=== PATIENT | male | born 1995 | race Caucasian/White ===

== ENCOUNTER 2025-02-10 03:42 | Inpatient (IN) | payer MEDICAID, SELFPAY ==
[2025-02-09 20:45] VITALS: BP 124/92
[2025-02-09 21:07] LABS: Hematocrit 43.2 % (39.0-52.0); Hemoglobin 15.9 g/dL (13.0-18.0); Mean Corp Hgb Conc. 36.8 g/dL (33.0-37.0); Mean Corpuscular Volume 97.1 fL (80.0-94.0); Nucleated Red Blood Cells % 0 % (-); Platelet Count 262 10^3/uL (130-400); Red Cell Dist. Width 11.3 % (11.5-14.5)
[2025-02-09 21:41] LABS: ALT (SGPT) 74 U/L (0-50); AST (SGOT) 34 U/L (17-59); Albumin 5.1 g/dl (3.5-5.0); Alkaline Phosphatase 139 U/L (38-126); Blood Urea Nitrogen 24 mg/dl (9-20); Calcium 10.3 mg/dl (8.4-10.2); Carbon Dioxide 29 mmol/L (22-30); Chloride 78 mmol/L (98-107); Glucose 880 mg/dl (70-99); Lipase 197 U/L (23-300); Potassium 5.8 mmol/L (3.5-5.1); Sodium 119 mmol/L (135-145); Total Protein 8.3 g/dl (6.3-8.2); eGFR > 60.00
[2025-02-09 22:11] VITALS: BP 116/88
[2025-02-09] MEDS: NSS 2000 IV (22:13)
[2025-02-09 22:24] LABS: Venous Blood Gas B.E. 4.3 mmol/L (-4 to +4); Venous Blood Gas O2 Sat % 68.4 %
[2025-02-09] MEDS: OMNIPAQUE 50 ML PO (22:25)
[2025-02-09] MEDS: MORPHINE SULFATE 4 MG IV (22:27)
[2025-02-09] MEDS: ZOFRAN 4 MG IV (22:27)
--- NOTE | 2025-02-09 22:29 | ED.GENMED ---
History of Present Illness
General
Chief Complaint: Abdominal Pain
Source: patient and family
Exam Limitations: none
Time Seen by Provider: 02/09/25 21:16
Nursing documentation reviewed up to this point in time: agreed with
History of Present Illness
History of Present Illness:
Note:
CHIEF COMPLAINT(S)
Abdominal pain and difficulty breathing.
HISTORY OF PRESENT ILLNESS
The patient is a 29-year-old male with a history of alcohol use and diabetes mellitus currently on insulin therapy. The patient presents with constant abdominal pain, which he has experienced since having pancreas-related issues. He mentions that
the abdominal area feels swollen and is tender to touch, particularly when there is pressure applied, making it difficult for him to breathe. The patient compares this episodes severity to a previous visit to the hospital. He denies hemoptysis. The
patient reports a significant reduction in alcohol consumption, having not consumed alcohol for almost three days. He expressed concern about potential alcohol withdrawal symptoms. The patient was started on insulin therapy last year. He mentions
that he uses Lantus insulin, primarily at night, basing its use on his blood sugar levels being elevated.
SOCIAL HISTORY
The patient admits to smoking tobacco and consuming alcohol, although he indicates he has significantly reduced his alcohol intake. He denies using any substances other than marijuana. He currently lives with his sister.
CHRONIC MEDICAL CONDITIONS SIGNIFICANTLY AFFECTING CARE
Diabetes mellitus, for which he is on insulin therapy.
PLAN
1. Order a computed tomography (CT) scan of the chest and abdomen/pelvis to evaluate abdominal pain and difficulty breathing.
2. Perform blood tests to assess electrolytes and other relevant parameters.
3. Monitor for potential alcohol withdrawal symptoms given the recent cessation of alcohol intake.
DIFFERENTIAL DIAGNOSIS
The Differential Diagnosis includes, in no particular order and is not limited to:
1. Pancreatitis
2. Peptic ulcer disease
3. Hepatic disease
4. Cholecystitis
5. Gastritis
6. Gastroesophageal reflux disease
7. Pneumonia
8. Pulmonary embolism
9. Alcohol withdrawal
10. Gastroenteritis
CARE-UPDATE
02/10/25 - 02:19
Hyperkalemia and hyperbilirubinemia improved; bilirubin levels decreased from 880 to 340. Discontinue insulin drip. Transfer to hospitalists for further management.
EKG
My independent EKG interpretation is:
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
- Rhythm: Normal
- Heart rate: 111 bpm
- DC interval: Normal
- QRS duration: Normal
- QT interval: Normal
- Whiting: Normal
- Abnormalities: No ST elevation, no ischemia
Disposition:
SUMMARY OF ENCOUNTER
The patient, a 29-year-old male with a history of diabetes mellitus on insulin therapy, was seen in the emergency department presenting with intractable abdominal pain and difficulty breathing. The patients condition was complicated by hyperglycemia
and poorly controlled diabetes. Lab results indicated elevated glucose levels, which have since decreased to 331. The patient reported a significant reduction in alcohol consumption, raising concerns about potential withdrawal symptoms. The
abdominal pains severity was compared to a previous hospital visit, potentially linked to pancreas-related issues.
DISPOSITION
Admit to the hospitalists for further management.
ASSESSMENT
The patient presents with hyperglycemia and abdominal pain, possibly due to pancreatitis, exacerbated by diabetes and recent alcohol intake changes.
PLAN
1. Admit the patient for further observation and management of hyperglycemia and abdominal pain.
2. Continue monitoring blood glucose levels and adjust insulin therapy as needed.
3. Assess for alcohol withdrawal symptoms and manage accordingly.
INDEPENDENT REVIEW OF LABS AND INTERPRETATION OF TESTS
My independent review of serum glucose levels indicates hyperglycemia, with glucose now reduced to 331 following the cessation of an insulin drip.
MEDICATION RECONCILIATION
Insulin (Lantus) therapy, currently adjusted due to recent hyperglycemia.
MEDICAL DECISION MAKING
-Complexity of Data Reviewed:
Chronic conditions affecting care include diabetes mellitus, alcohol use disorder, and possible pancreatitis.
Differential Diagnosis includes pancreatitis, peptic ulcer disease, hepatic disease, cholecystitis, gastritis, gastroesophageal reflux disease, pneumonia, pulmonary embolism, alcohol withdrawal, and gastroenteritis.
-Data:
Category 1
Tests considered include those necessary for evaluating abdominal pain and hyperglycemia management, such as blood glucose levels, and CT imaging was previously ordered.
Category 2
My independent interpretation of EKG shows a normal rhythm with a heart rate of 111 bpm.
Category 3
Management discussed with hospitalist team for continuation of care in a hospital setting.
-Risk:
Consideration of Admission/Observation: Escalation of care including admission/observation was considered given the complexity and risk of the patients presenting complaint, exam findings, and/or their underlying comorbidities. However, ultimately I
feel the patient is safe for outpatient management with close follow up. Reasoning: Work-up reassuring, does not reveal any acute life/organ threatening processes, patients symptoms well controlled upon reevaluation, reexamination is reassuring,
vitals are stable, patient agreeable with discharge, reliable for follow-up.
DIAGNOSIS
1. Hyperglycemia, unspecified (ICD-10: R73.9)
2. Abdominal pain, unspecified (ICD-10: R10.9)
3. Diabetes mellitus, type 1 (ICD-10: E10.9)
4. Possible Alcohol withdrawal (ICD-10: F10.239)
Past History
Past History
ED Past Medical History: None
ED Past Surgical History: None
Social History
Tobacco: Non-smoker
Alcohol: Occasional
Drug: None
Personal: Single
Living: with family
Phy Exam
Physical Exam
Physical Exam:
.
Course
Orders/Labs/Results
Orders:
Orders
02/09/25 20:49
Electrocardiogram (*1) Urgent
Reason for Study: Chest Pain
EKG- Treatment ONCE
IV Insert/Care/Rem.- Treatment PRN
02/09/25 20:59
B-Hydroxybutyrate Urgent
Comment: ADD ON
Complete Blood Count/With Diff Urgent
Comprehensive Metabolic Panel Urgent
Lipase Urgent
02/09/25 21:34
IV Insert/Care/Rem.- Treatment PRN
Iohexol [Omnipaque] See Protocol PO NOW STA
02/09/25 21:51
0.9% Sodium Chloride 1000 ml [Nss] 2,000 ml IV BOLUS
02/09/25 21:54
Add On- LAB Urgent
Tests Added?: b hydroxybutyrate
02/09/25 22:11
D-Dimer Urgent
Venous Blood Gas Urgent
%Oxygen/Room Air: 97
02/09/25 22:18
Morphine Sulfate 4 mg IV NOW STA
Ondansetron Injectable [Zofran] 4 mg IV NOW STA
02/09/25 22:26
Insulin Human Regular [Novolin R] 9 units IV NOW STA
02/09/25 22:27
Bedside Glucose- Treatment Q1H
02/09/25 22:52
Reg Insulin 100 Units/100 ml [Novolin R Insulin Infusion] 100 units in 100 ml IV NOW
02/09/25 23:02
Basic Metabolic Panel Q2H
02/10/25 00:30
CT Pe/abd/pel W Urgent
Reason For Exam: epigastric pain, history necr pancreatitis; hemoptysis
02/10/25 01:07
Basic Metabolic Panel Q2H
02/10/25 01:41
Morphine Sulfate 4 mg IV NOW STA
02/10/25 01:55
Ondansetron Injectable [Zofran] 4 mg IV NOW STA
02/10/25 02:00
KCl 20 Meq/0.9%Sodchl 1000 ml [NSS with KCL 20 MEQ] 20 meq in 1,000 ml IV 250 mls/hr
02/10/25 03:00
Basic Metabolic Panel Q2H
KCl 20 Meq/0.9%Sodchl 1000 ml [NSS with KCL 20 MEQ] 20 meq in 1,000 ml IV 250 mls/hr
Abnormal Lab Results
1002/09/25 02/09/25
20:59 22:11 22:59
RBC 4.45 L 10^6/uL
(4.70-6.10)
MCV 97.1 H fL
(80.0-94.0)
MCH 35.7 H pg
(27.0-31.0)
RDW 11.3 L %
(11.5-14.5)
Absolute Monos (auto) 1.2 H 10^3/uL
(0.1-0.6)
Monocytes % 11.8 H %
(1.7-9.3)
VBG pCO2 54 H mmHg
(35-48)
VBG HCO3 31.2 H mmol/L
(22-27)
Sodium 119 L* mmol/L
(135-145)
Potassium 5.8 H mmol/L
(3.5-5.1)
Chloride 78 L mmol/L
(98-107)
BUN 24 H mg/dl
(9-20)
Creatinine
Glucose 880 H* mg/dl
(70-99)
Calcium 10.3 H mg/dl
(8.4-10.2)
ALT 74 H U/L
(0-50)
Alkaline Phosphatase 139 H U/L
(38-126)
Total Protein 8.3 H g/dl
(6.3-8.2)
Albumin 5.1 H g/dl
(3.5-5.0)
B-Hydroxybutyrate 2.07 H mmol/L
(0.02-0.27)
POC Glucose > 600 H* mg/dl
(70-99)
02/09/25 02/10/25 02/10/25
23:02 01:07 01:11
RBC
MCV
MCH
RDW
Absolute Monos (auto)
Monocytes %
VBG pCO2
VBG HCO3
Sodium 122 L mmol/L 130 L D mmol/L
(135-145) (135-145)
Potassium 5.4 H mmol/L
(3.5-5.1)
Chloride 89 L mmol/L 93 L mmol/L
(98-107) (98-107)
BUN 22 H mg/dl
(9-20)
Creatinine 0.6 L mg/dL 0.5 L mg/dL
(0.7-1.3) (0.7-1.3)
Glucose 781 H* mg/dl 441 H mg/dl
(70-99) (70-99)
Calcium
ALT
Alkaline Phosphatase
Total Protein
Albumin
B-Hydroxybutyrate
POC Glucose 454 H* mg/dl
(70-99)
02/10/25
02:07
RBC
MCV
MCH
RDW
Absolute Monos (auto)
Monocytes %
VBG pCO2
VBG HCO3
Sodium
Potassium
Chloride
BUN
Creatinine
Glucose
Calcium
ALT
Alkaline Phosphatase
Total Protein
Albumin
B-Hydroxybutyrate
POC Glucose 331 H mg/dl
(70-99)
02/09/25 20:59
Vital Signs
Initial and Last Documented VS:
Initial Vital Signs
Temp Pulse Resp BP Pulse Ox
97.6 F 123 16 124/92 97
02/09/25 20:45 02/09/25 20:45 02/09/25 20:45 02/09/25 20:45 02/09/25 20:45
Last Documented Vital Signs
Temp Pulse Resp BP Pulse Ox
99.2 F 100 14 96/80 94
02/10/25 02:09 02/10/25 02:15 02/10/25 02:15 02/10/25 02:00 02/10/25 02:15
*Pulse Oximetry
SaO2: 97
Oxygen Mode of Delivery: Room air
Patient hypoxic: no
*Critical Care Note
Total Time (30-74mins, 75-104mins- exclusive of procedures): Not Applicable
ED Attending Note
-
Portions of this chart may have been created with voice recognition software.� Occasional wrong word or��sound alike� substitutions may have occurred due to the inherent limitations of voice recognition software.
Discharge Plan
Departure
Patient Disposition: Admit
Date of Disposition: 02/10/25
Time of Disposition: 02:27
Presentation/result/management discussed w/ accepting MD/DO: Hospitalist
Patient with high blood pressure during this ER visit?: No
Condition: Fair
Discharge Problem:
Diabetes mellitus with hyperglycemia, Acute hyperkalemia, Abdominal pain, Chronic pancreatitis
Prescriptions:
No Action
No Current Medications
0
Referrals:
UNKNOWN - PT DOES,NOT KNOW [Family Provider]
Interventions
Interventions:
*Risk Screen - Suicide Last Done: 02/09/25 20:45
*General Assessment Last Done: 02/09/25 20:45
*Neglect/Abuse Screening Last Done: 02/09/25 20:45
*ED- Fall Risk Assessment Last Done: 02/09/25 20:45
*ED COVID-19 Vaccine History Last Done: 02/09/25 20:45
*ED Influenza Vaccine History Last Done: 02/09/25 20:45
EU-Moxvhd-Jmyqbqszml Assessment Last Done: 02/09/25 23:50
Discharge Date and Time
Print Language: ALBANIAN
[2025-02-09 22:33] VITALS: BMI 20.7
[2025-02-09 22:41] LABS: D-Dimer < 0.27 ug/mlFEU (0.00-0.50)
[2025-02-09 23:00] VITALS: BP 120/95
[2025-02-09 23:00] LABS: Glucose - Point of Care > 600 mg/dl (70-99)
[2025-02-09 23:37] LABS: Blood Urea Nitrogen 22 mg/dl (9-20); Calcium 8.5 mg/dl (8.4-10.2); Carbon Dioxide 28 mmol/L (22-30); Chloride 89 mmol/L (98-107); Estimated Creatinine Clearance > 125 ml/min; Glucose 781 mg/dl (70-99); Potassium 5.4 mmol/L (3.5-5.1); Sodium 122 mmol/L (135-145); eGFR > 60.00
[2025-02-09] MEDS: NOVOLIN R 9 UNITS IV (23:53)
[2025-02-10] VITALS (15 sets, daily range): BP systolic 95–112; BP diastolic 66–86; BMI 20.2
[2025-02-10] MEDS: NOVOLIN R INSULIN INFUSION 100 IV
--- NOTE | 2025-02-10 00:29 | EDRN ---
IV pump beeping because pt moves R arm stopping infusion. Switched insulin infusion to R forearm #20g.
[2025-02-10 01:13] LABS: Glucose - Point of Care 454 mg/dl (70-99)
[2025-02-10 01:42] LABS: Blood Urea Nitrogen 20 mg/dl (9-20); Calcium 9.3 mg/dl (8.4-10.2); Carbon Dioxide 26 mmol/L (22-30); Chloride 93 mmol/L (98-107); Estimated Creatinine Clearance > 125 ml/min; Glucose 441 mg/dl (70-99); Potassium 4.0 mmol/L (3.5-5.1); Sodium 130 mmol/L (135-145); eGFR > 60.00
[2025-02-10] MEDS: MORPHINE SULFATE 4 MG IV (01:47)
[2025-02-10] MEDS: ZOFRAN 4 MG IV (01:58)
[2025-02-10 02:08] LABS: Glucose - Point of Care 331 mg/dl (70-99)
--- NOTE | 2025-02-10 02:08 | EDRN ---
Called pharmacy for NSS with 20meq KCL
--- NOTE | 2025-02-10 02:12 | EDRN ---
Dr De Los Santos informed repeat accu check = 331. Verbal order from Dr De Los Santos to stop insulin infusion.
--- NOTE | 2025-02-10 02:17 | EDRN ---
Dr De Los Santos said to run the NSS with 20meq KCl as ordered until result of 0300 bmp
[2025-02-10] MEDS: NSS with KCL 20 MEQ 1000 IV (02:40)
--- NOTE | 2025-02-10 03:19 | HPS.HSE ---
Family Physician
-
Family Physician: NOT KNOW UNKNOWN - PT DOES
Chief Complaint
-
Cough, Fatigue, Weight Loss
History of Present Illness
Patient is a 29y M with PMH significant for chronic pancreatitis and diabetes who presents to ED complaining of cough with scant hemoptysis, abdominal pain / chest pain and SOB. Patient states that he has had cough for about one week. Today had
small streaks of blood noted in sputum. No fevers / chills. He complains of pain in the upper abdomen and lower chest with sensation of SOB. He states that he has had similar pain / dyspnea in the past with flares of his pancreatitis. Patient
denies any known sick contacts, recent travel, etc.
Patient also notes marked weight loss over the past 1 year. He previously weighed 200 lbs and currently weighs about 120.
Patient states that he is constantly eating and drinking, but cannot gain any weight. He feels fatigued / tired all of the time. He feels weak and has SOB with exertion / activity.
Patient was diagnosed with diabetes after having recurrent pancreatitis episodes for about one year. He was prescribed Lantus which he states he only takes if his PM sugar is > 180.
He admits that he has not been checking his sugars at all / taking his insulin for at least the past 2 weeks.
Medical History
Past Medical History
Past Medical History: Reports Other
Additional Past Medical History:
Chronic Pancreatitis
Diabetes Mellitus
Past Surgical History: Reports Other
Additional Past Surgical History:
Eye Surgery
Social History
Tobacco: Smoker (Current every day smoker.)
Alcohol: Occasional (Previous daily / excessive EtOH intake. Now drinks occasionally.)
Drug: None
Family History
Family History: Not pertinent
Allergies / Home Medications
Allergies reflects when Allergies were last updated in [employer].
Home Medications with original date entered in [employer]
Allergy/Medication List:
Allergies
Allergy/AdvReac Type Severity Reaction Status Date / Time
No Known Allergies Allergy Verified 02/09/25 20:48
Home Medications
insulin glargine 100 unit/mL (3 mL) subcutaneous pen (Lantus Solostar U-100 Insulin) 17 unit SC QPM PRN Glucose > 180 02/10/25
Review of Systems
-
History Source: Patient
A 12 point ROS was completed and negative except as noted: Yes
Constitutional: Reports Weight Loss and Fatigue; Denies Fever or Chills
EENT: Denies Sore Throat
Respiratory: Reports Cough, Hemoptysis and Trouble Breathing
Cardiac: Reports Chest Pain; Denies Diaphoresis, Palpitations or Syncope
Abdomen/GI: Reports Abdominal Pain and Nausea; Denies Vomiting, Diarrhea, Constipated, Bloody Stools, Black Stools or Anorexia
: Denies Dysuria, Frequency or Flank Pain
Musculoskeletal: Denies Joint Pain or Edema
Neurological: Reports Weakness; Denies Headache
Psych: Denies Depression or Anxiety
Physical Exam
Vital Signs
Vital Signs
Temp Pulse Resp BP Pulse Ox
99.2 F 100 14 96/80 94
02/10/25 02:09 02/10/25 02:15 02/10/25 02:15 02/10/25 02:00 02/10/25 02:15
Physical Exam
General: Other (Thin, cachectic 29y M in no acute distress.)
HEENT: Other (Dry MM. Neck supple.)
Respiratory: Clear; No Wheezes, Rales or Rhonchi
Cardiac: S1/S2 and Regular Rhythm; No Murmur
GI: Soft, Non Distended, Normal Bowel Sounds and Other (Mild epigastric tenderness with voluntary guarding. Pos BS.)
Musculoskeletal: No Clubbing, No Cyanosis and No Edema
Neuro: AO x 3
Laboratory Results
-
02/09/25 20:59
Laboratory Results
Total Bilirubin 0.8 mg/dl (0.2-1.3) 02/09/25 20:59
AST 34 U/L (17-59) 02/09/25 20:59
ALT 74 U/L (0-50) H 02/09/25 20:59
Alkaline Phosphatase 139 U/L (38-126) H 02/09/25 20:59
Lipase 197 U/L (23-300) 02/09/25 20:59
Impression/Plan
-
A/P: Patient is a 29y M with PMH significant for alcoholic pancreatitis / chronic pancreatitis and DM who presents to ED complaining of chest pain, cough, hemoptysis, weight loss, etc.
Severe Uncontrolled DM
Weight Loss / Cachexia secondary to the above
Pseudohyponatremia secondary to the above
- Admit for further evaluation and treatment.
- Was on insulin gtt briefly in the ED.
- No elevation in anion gap, no acidemia on blood gas.
- Lantus dose now and then daily - adjust dose as needed for improved glycemic control.
- Suspect that weight loss, fatigue, etc are sequelae of long-standing poor DM control.
- Patient will benefit from regular basal:bolus regimen.
- DM education.
- IVF support.
- Follow for clinical improvement.
Acute on Chronic Pancreatitis
- Initially secondary to alcohol use disorder - multiple hospitalizations but none in about one year according to patient.
- Diet as tolerated and follow for new / worsening symptoms.
- Aggressive IVF replacement.
- Pain control, antiemetics, etc.
- Follow for clinical improvement.
Cough / Bronchitis
- Likely viral bronchitis. Check COVID status.
- CT without evidence of PE, pneumonia, etc.
- Supportive care.
- Follow for any new/ worsening symptoms.
DVT Prophylaxis: Lovenox
Code Status: Full
[2025-02-10 03:45] LABS: Blood Urea Nitrogen 19 mg/dl (9-20); Calcium 9.6 mg/dl (8.4-10.2); Carbon Dioxide 27 mmol/L (22-30); Chloride 96 mmol/L (98-107); Estimated Creatinine Clearance > 125 ml/min; Glucose 262 mg/dl (70-99); Potassium 4.4 mmol/L (3.5-5.1); Sodium 132 mmol/L (135-145); eGFR > 60.00
[2025-02-10] MEDS: LANTUS 0.12 UNITS SC (03:59)
[2025-02-10 04:04] LABS: Glucose - Point of Care 285 mg/dl (70-99)
[2025-02-10 04:31] LABS: COVID-19 Antigen Negative (Negative)
[2025-02-10] MEDS: DILAUDID 0.5 MG IV ×5 (06:06→23:34)
[2025-02-10 06:15] LABS: Glucose - Point of Care 322 mg/dl (70-99)
[2025-02-10] MEDS: LR 1000 IV ×3 (07:36→17:39)
[2025-02-10 07:54] LABS: Hematocrit 36.0 % (39.0-52.0); Hemoglobin 12.9 g/dL (13.0-18.0); Mean Corp Hgb Conc. 35.8 g/dL (33.0-37.0); Mean Corpuscular Volume 95.7 fL (80.0-94.0); Platelet Count 212 10^3/uL (130-400); Red Cell Dist. Width 11.8 % (11.5-14.5)
[2025-02-10 08:28] LABS: Potassium 4.3 mmol/L (3.5-5.1)
[2025-02-10 08:29] LABS: ALT (SGPT) 52 U/L (0-50); AST (SGOT) 30 U/L (17-59); Albumin 3.9 g/dl (3.5-5.0); Alkaline Phosphatase 88 U/L (38-126); Blood Urea Nitrogen 18 mg/dl (9-20); Calcium 8.8 mg/dl (8.4-10.2); Carbon Dioxide 27 mmol/L (22-30); Chloride 96 mmol/L (98-107); Estimated Creatinine Clearance > 125 ml/min; Glucose 301 mg/dl (70-99); Magnesium 1.4 mg/dl (1.6-2.3); Sodium 133 mmol/L (135-145); Total Protein 6.5 g/dl (6.3-8.2); eGFR > 60.00
[2025-02-10 08:30] LABS: Glucose - Point of Care 327 mg/dl (70-99)
[2025-02-10] MEDS: PROTONIX IV 40 MG IV (08:47)
[2025-02-10] MEDS: NOVOLOG FLEXPEN-MODERATE RESISTANCE 7 UNITS SC (08:47)
--- NOTE | 2025-02-10 10:16 | W.PN.HOSP.TC ---
Today's Communication/Plan
-
see plan
Assessment / Plan
Assessment / Plan
29y M with PMH significant for alcoholic pancreatitis/chronic pancreatitis and DM who presents to ED complaining of chest pain, cough, hemoptysis, weight loss.
Gen: NAD, AAOx3.
Eyes: EOMI, PERRLA, no scleral icterus.
Neck: supple.
CV: RRR, +S1/S2, no m/r/g.
Resp: CTAB, no rales, wheezes, or rhonchi.
Abd: +BS, soft, epigastric TTP with guaring, ND
Skin: No rashes.
Neuro: CN 2-12 intact, non-focal.
Psych: Normal mood and affect.
CT A/P: No evidence of central pulmonary embolism. Scattered small pancreatic calcifications compatible with chronic pancreatitis. Moderate to large volume colonic stool, especially proximally. Findings could represent constipation.
Severe Uncontrolled DM1
-Weight Loss / Cachexia secondary to the above
-was on insulin gtt briefly in the ED
-No elevation in anion gap, no acidemia on blood gas.
-increase Lantus to 15U HS, start 5U premeal Novolog
-Suspect that weight loss, fatigue, etc are sequelae of long-standing poor DM control
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
-a1c pending
-cont IVFs
Chronic Pancreatitis:
-acute component of pancreatitis has been ruled out
-Chronic pancreatitis due to alcohol abuse disorder
-patient admits to continued alcohol use although less than prior
-Lipase normal
-diet as tolerated
-cont IVFs
-Pain control, antiemetics
Cough/Bronchitis:
-COVID NEG
-likely viral bronchitis
-CT chest above
-supportive care
Hypomagnesemia:
-2g IV Mg
FULL/Lovenox
Anticipated Discharge: Within 24 hours
Subjective/Interval History
-
Date of Service: February 10, 2025
Objective Data
-
Labs:
Laboratory Results
02/09/25 02/09/25 02/10/25
23:02 23:02 00:30
WBC
Hgb
Hct
Plt Count
Sodium 122 L Cancelled
Potassium 5.4 H Cancelled
Chloride 89 L Cancelled
Carbon Dioxide 28 Cancelled
BUN 22 H Cancelled
Creatinine 0.6 L Cancelled
Glucose 781 H* Cancelled Cancelled
Calcium 8.5 D Cancelled
Total Bilirubin
AST
ALT
Alkaline Phosphatase
02/10/25 02/10/25 02/10/25
01:07 02:30 03:00
WBC
Hgb
Hct
Plt Count
Sodium 130 L D Cancelled 132 L
Potassium 4.0 D Cancelled 4.4
Chloride 93 L Cancelled 96 L
Carbon Dioxide 26 Cancelled 27
BUN 20 Cancelled 19
Creatinine 0.5 L Cancelled 0.5 L
Glucose 441 H Cancelled 262 H
Calcium 9.3 Cancelled 9.6
Total Bilirubin
AST
ALT
Alkaline Phosphatase
02/10/25
07:24
WBC 8.6
Hgb 12.9 L
Hct 36.0 L
Plt Count 212
Sodium 133 L
Potassium 4.3
Chloride 96 L
Carbon Dioxide 27
BUN 18
Creatinine 0.6 L
Glucose 301 H
Calcium 8.8
Total Bilirubin 0.3
AST 30
ALT 52 H
Alkaline Phosphatase 88
Vital Signs:
Vital Signs
Temp Pulse Resp BP Pulse Ox
97.6 F 84 17 98/66 96
02/10/25 07:30 02/10/25 07:30 02/10/25 07:30 02/10/25 07:30 02/10/25 07:30
[2025-02-10] MEDS: MAGNESIUM SULFATE 50 IV (10:31)
[2025-02-10 11:37] LABS: Glucose - Point of Care 417 mg/dl (70-99)
[2025-02-10 12:09] LABS: Glycohemoglobin (HgbA1c) 12.9 % (4.0-5.6)
[2025-02-10] MEDS: NOVOLOG FLEXPEN-MODERATE RESISTANCE 11 UNITS SC (12:16)
[2025-02-10] MEDS: NOVOLOG FLEXPEN 5 UNITS SC ×2 (12:17→16:49)
[2025-02-10 12:20] LABS: Glucose 349 mg/dl (70-99)
--- NOTE | 2025-02-10 15:16 | CM ---
CM reviewed chart, patient seen bedside, initial assessment completed.
Patient reports he is currently staying with his sister in a multiple story town home.
Patient is independent with ADLs/IADLs.
Patient currently uninsured-CM inquired how long patient has been uninsured, per patient, only a few months, had state insurance and is unsure how he lost insurance.
Patient does not have a PCP, Pharmacy [facility].
Patient reports recently diagnosed with diabetes about one year ago, was not managing properly- consult placed for [employer].
CM discussed [facility] most affordable option for diabetic supplies.
CM will continue to follow.
Plan; home with family
[2025-02-10 16:34] LABS: Glucose - Point of Care 290 mg/dl (70-99)
[2025-02-10] MEDS: NOVOLOG FLEXPEN-MODERATE RESISTANCE 5 UNITS SC (16:48)
[2025-02-10] MEDS: LOVENOX 40 MG SC (17:41)
[2025-02-10 21:24] LABS: Glucose - Point of Care 382 mg/dl (70-99)
[2025-02-10] MEDS: LANTUS 0.15 UNITS SC (21:28)
[2025-02-11] MEDS: LR 1000 IV ×4 (02:08→19:58)
[2025-02-11 03:00] VITALS: BP 113/86
[2025-02-11 03:46] VITALS: BMI 20.6
[2025-02-11] MEDS: DILAUDID 0.5 MG IV ×5 (03:47→21:19)
[2025-02-11 07:06] LABS: Glucose - Point of Care 349 mg/dl (70-99)
[2025-02-11 07:38] VITALS: BP 107/73
--- NOTE | 2025-02-11 07:41 | PN.DE.MGMTRT ---
Insulin Management
- -
02/11/2025: Diabetes Management Consult
29 year old male with PMH: Alcoholic Pancreatitis/Chronic pancreatitis and diabetes who presents to ED complaining chest pain, cough, hemoptysis, weight loss, etc. States he has had similar pain / dyspnea in the past with flares of his
pancreatitis. Patient also notes marked weight loss over the past 1 year. He previously weighed 200 lbs and currently weighs about 120. Patient states that he is constantly eating and drinking, but cannot gain any weight. He feels fatigued / tired
all of the time. He feels weak and has SOB on exertion and with minor activity.
Pt awake, alert, oriented, sitting up in bed, offers no complaints, able to discuss diabetes care plan
States he was diagnosed with diabetes last year after having recurrent episodes of pancreatitis for about one year.
States he was Rx Lantus by his PCP in [place] and was instructed to only take it if his PM sugar is > 200, he has not gone to see his PCP in over 6 months.
He admits that he has not been checking his sugars at all and has not been taking his insulin for at least the past 2 weeks.
Glucose on admission was 880, he was initiated on insulin gtt briefly in the ED, then was started on basal bolus regimen. A1C is 12.9% consistent with severe Uncontrolled Diabetes, Cr 0.6, eGFR >60.
He is noted for persistent hyperglycemia> 250. Premeal glucose yesterday was 290 to 417, required 5-11 units of corrective insulin, HS was 382, received Lantus 15 units, fasting glucose is 349 today. Will increase NovoLog to 10 units AC and increase
Lantus to 20 units @ HS.
Suspect that weight loss, fatigue, lack of energy are sequelae of long-standing poor DM control.
Had a lengthy d/w pt regarding his current A1C and lack of interest in diabetes self care management.
Discussed implications of poorly controlled diabetes as it relates to acute and edge banding off bearer diabetes related complications, to which he responded stating that he forgets most of the time to check his blood sugar.
Will consult diabetes nurse educator and Dietitian
Diabetes History
- -
Type of Diabetes: 2 requiring insulin
Pre-Admission Diabetes Regimen
02/10/25
07:24
Creatinine 0.6 L
Lab Results
Hemoglobin A1c 12.9 % (4.0-5.6) H 02/10/25 07:24
Insulin Pump Settings
IP Diabetes Regimen
02/10/25 02/10/25 02/10/25
07:24 08:28 11:34
Glucose 301 H
POC Glucose 327 H 417 H
02/10/25 02/10/25 02/10/25
11:45 16:32 21:23
Glucose 349 H
POC Glucose 290 H 382 H
02/11/25
07:05
Glucose
POC Glucose 349 H
Patient Education
[2025-02-11] MEDS: NSS (PRESERVATIVE FREE) 10 ML IV (07:57)
[2025-02-11] MEDS: PROTONIX IV 40 MG IV (07:57)
[2025-02-11] MEDS: NOVOLOG FLEXPEN 5 UNITS SC (07:57)
[2025-02-11] MEDS: NOVOLOG FLEXPEN-MODERATE RESISTANCE 7 UNITS SC ×2 (07:58→11:34)
[2025-02-11 08:18] LABS: Hematocrit 35.1 % (39.0-52.0); Hemoglobin 12.4 g/dL (13.0-18.0); Mean Corp Hgb Conc. 35.3 g/dL (33.0-37.0); Mean Corpuscular Volume 100.6 fL (80.0-94.0); Platelet Count 184 10^3/uL (130-400); Red Cell Dist. Width 11.6 % (11.5-14.5)
[2025-02-11 08:56] LABS: Blood Urea Nitrogen 10 mg/dl (9-20); Calcium 8.8 mg/dl (8.4-10.2); Carbon Dioxide 29 mmol/L (22-30); Chloride 99 mmol/L (98-107); Estimated Creatinine Clearance > 125 ml/min; Glucose 313 mg/dl (70-99); Magnesium 1.5 mg/dl (1.6-2.3); Potassium 4.2 mmol/L (3.5-5.1); Sodium 131 mmol/L (135-145); eGFR > 60.00
--- NOTE | 2025-02-11 09:45 | W.PN.HOSP.TC ---
Today's Communication/Plan
-
see bold
Assessment / Plan
Assessment / Plan
29y M with PMH significant for alcoholic pancreatitis/chronic pancreatitis and DM who presents to ED complaining of chest pain, cough, hemoptysis, weight loss.
CT A/P: No evidence of central pulmonary embolism. Scattered small pancreatic calcifications compatible with chronic pancreatitis. Moderate to large volume colonic stool, especially proximally. Findings could represent constipation.
Severe Uncontrolled DM1, hemoglobin A1c 12.9
-Weight Loss secondary to the above
-was on insulin gtt briefly in the ED
-no elevation in anion gap, no acidemia on blood gas
-continue with insulin adjustments as per diabetes COMPUTER NUMERICAL CONTROL PROGRAMMER
-will need to establish care with and follow-up with diabetes COMPUTER NUMERICAL CONTROL PROGRAMMER
Chronic Pancreatitis:
-acute component of pancreatitis has been ruled out
-chronic pancreatitis due to alcohol abuse disorder
-patient admits to continued alcohol use although less than prior
-lipase normal, diet as tolerated, IVFs
-pain control, antiemetics
Cough/Bronchitis:
-COVID NEG
-likely viral bronchitis
-CT chest above
-supportive care
Hypomagnesemia:
-2g IV Mg, f/u am Mg
DVT prophylaxis�SCDs
Full code
Total time spent to see the patient on the floor, examine the patient, review data and lab results, discuss treatment plan with patient, nursing staff around 50 minutes.
Physical exam
Gen: NAD, AAOx3.
Eyes: EOMI, PERRLA, no scleral icterus.
Neck: supple.
CV: RRR, +S1/S2, no m/r/g.
Resp: CTAB, no rales, wheezes, or rhonchi.
Abd: +BS, soft, epigastric TTP with guaring, ND
Skin: No rashes.
Neuro: CN 2-12 intact, non-focal.
Psych: Normal mood and affect.
Anticipated Discharge: 24 - 48 hours
Subjective/Interval History
-
Date of Service: February 11, 2025
Patient reports his abdominal pain is 6 out of 10 in intensity. Denies chest pain, denies shortness of breath. No fever, no vomiting.
Objective Data
-
Labs:
Laboratory Results
02/11/25
07:35
WBC 7.6
Hgb 12.4 L
Hct 35.1 L
Plt Count 184
Sodium 131 L
Potassium 4.2
Chloride 99
Carbon Dioxide 29
BUN 10
Creatinine 0.6 L
Glucose 313 H
Calcium 8.8
Vital Signs:
Vital Signs
Temp Pulse Resp BP Pulse Ox
98.0 F 88 17 107/73 97
02/11/25 07:38 02/11/25 07:38 02/11/25 07:38 02/11/25 07:38 02/11/25 07:38
I&O
02/10/25 02/11/25 02/12/25
06:59 06:59 06:59
Intake Total 1749
Balance 1749
[2025-02-11] MEDS: MAGNESIUM SULFATE 50 IV (10:19)
[2025-02-11 11:09] LABS: Glucose - Point of Care 317 mg/dl (70-99)
[2025-02-11] MEDS: NOVOLOG FLEXPEN 10 UNITS SC ×2 (11:33→16:57)
[2025-02-11 11:45] VITALS: BP 103/69
[2025-02-11 15:35] VITALS: BP 98/68
[2025-02-11 16:19] LABS: Glucose - Point of Care 213 mg/dl (70-99)
--- NOTE | 2025-02-11 16:32 | W.PN.HOSP.TC ---
Today's Communication/Plan
-
see bold
Assessment / Plan
Assessment / Plan
29y M with PMH significant for alcoholic pancreatitis/chronic pancreatitis and DM who presents to ED complaining of chest pain, cough, hemoptysis, weight loss.
CT A/P: No evidence of central pulmonary embolism. Scattered small pancreatic calcifications compatible with chronic pancreatitis. Moderate to large volume colonic stool, especially proximally. Findings could represent constipation.
Severe Uncontrolled DM1, hemoglobin A1c 12.9
-Weight Loss secondary to the above
-was on insulin gtt briefly in the ED
-no elevation in anion gap, no acidemia on blood gas
-continue with insulin adjustments as per diabetes BOTTLE HOUSE PUMPER
-consult nutrition
-will need to establish care with and follow-up with diabetes BOTTLE HOUSE PUMPER
Chronic Pancreatitis:
-acute component of pancreatitis has been ruled out
-chronic pancreatitis due to alcohol abuse disorder
-patient admits to continued alcohol use although less than prior
-lipase normal, tolerating solids, will stop IV fluids and IV Dilaudid since patient is constipated and he now has lower abdominal pain
Constipation
- 02/10 CT abdomen and pelvis shows moderate to large volume colonic stool, especially proximally
- Patient declining laxatives, stop IV Dilaudid
Hyponatremia
-improving
Cough/Bronchitis:
-COVID NEG
-likely viral bronchitis
-supportive care
Hypomagnesemia:
-2g IV Mg, f/u am Mg
DVT prophylaxis�SCDs
Full code
Total time spent to see the patient on the floor, examine the patient, review data and lab results, discuss treatment plan with patient, nursing staff around 51 minutes.
Physical exam
Gen: NAD, AAOx3.
Eyes: EOMI, PERRLA, no scleral icterus.
Neck: supple.
CV: RRR, +S1/S2, no m/r/g.
Resp: CTAB, no rales, wheezes, or rhonchi.
Abd: +BS, mildly distended, tender at the suprapubic region
Skin: No rashes.
Neuro: CN 2-12 intact, non-focal.
Psych: Normal mood and affect.
Anticipated Discharge: 24 - 48 hours
Subjective/Interval History
-
Date of Service: February 11, 2025
Patient denies epigastric abdominal pain. He does complain of lower abdominal pain. Reports having a bowel movement today. Denies chest pain, denies shortness of breath. No fever, no vomiting.
Objective Data
-
Labs:
Laboratory Results
02/11/25
07:35
WBC 7.6
Hgb 12.4 L
Hct 35.1 L
Plt Count 184
Sodium 131 L
Potassium 4.2
Chloride 99
Carbon Dioxide 29
BUN 10
Creatinine 0.6 L
Glucose 313 H
Calcium 8.8
Vital Signs:
Vital Signs
Temp Pulse Resp BP Pulse Ox
98.0 F 81 17 98/68 95
02/11/25 15:35 02/11/25 15:35 02/11/25 15:35 02/11/25 15:35 02/11/25 15:35
I&O
02/10/25 02/11/25 02/12/25
06:59 06:59 06:59
Intake Total 1749 / 175
Balance 175 / 175
--- NOTE | 2025-02-11 16:47 | CM ---
Patient seen on . Patient plan is to go home with family. [facility]SI to see patient today. Patient sister Geraldine [phone]. Patient plan is home with family supports. CM will continue to follow for discharge planning needs.
Plan; home with supports following MA application
[2025-02-11] MEDS: LR IV (16:55)
[2025-02-11] MEDS: NOVOLOG FLEXPEN-MODERATE RESISTANCE 3 UNITS SC (16:57)
[2025-02-11 17:31] VITALS: BMI 20.6
[2025-02-11 19:00] VITALS: BP 111/77
[2025-02-11 21:15] LABS: Glucose - Point of Care 388 mg/dl (70-99)
[2025-02-11] MEDS: LANTUS 0.2 UNITS SC (21:16)
[2025-02-11 23:00] VITALS: BP 114/79
[2025-02-12] MEDS: DILAUDID 0.5 MG IV ×3 (01:20→10:15)
[2025-02-12 03:50] VITALS: BP 121/82
[2025-02-12] MEDS: LR IV ×2 (04:05→13:31)
[2025-02-12] MEDS: LR 1000 IV (04:15)
[2025-02-12 06:00] VITALS: BMI 20.8
[2025-02-12 06:32] LABS: Blood Urea Nitrogen 9 mg/dl (9-20); Calcium 8.6 mg/dl (8.4-10.2); Carbon Dioxide 27 mmol/L (22-30); Chloride 100 mmol/L (98-107); Estimated Creatinine Clearance > 125 ml/min; Glucose 420 mg/dl (70-99); Magnesium 1.5 mg/dl (1.6-2.3); Potassium 4.2 mmol/L (3.5-5.1); Sodium 132 mmol/L (135-145); eGFR > 60.00
[2025-02-12 07:29] VITALS: BP 119/81
[2025-02-12 08:01] LABS: Glucose - Point of Care 406 mg/dl (70-99)
[2025-02-12] MEDS: PROTONIX IV 40 MG IV (08:09)
[2025-02-12] MEDS: NSS (PRESERVATIVE FREE) 10 ML IV (08:09)
--- NOTE | 2025-02-12 08:23 | PTCARENOTE ---
BS registering 'Hi ' on meter - pt asymptomatic, Did stat glucose - hospitalist notified .
--- NOTE | 2025-02-12 08:40 | PN.DE.MGMTRT ---
Insulin Management
- -
02/12/2025: Diabetes Management Consult Follow up
29 year old male c/o cough, chest pain, abdominal pain, difficulty breathing, hemoptysis, weight loss. PMH: Alcohol abuse, current smoker, Alcoholic Pancreatitis/Chronic pancreatitis and diabetes. States he has had similar pain / dyspnea in the
past with flares of his pancreatitis. Patient also notes marked weight loss over the past 1 year. He previously weighed 200 lbs and currently weighs about 153 per our weight check. Patient states that he is constantly eating and drinking, but
cannot gain any weight. He feels fatigued / tired all of the time with increased SOB on exertion and with minor activity.
Pt awake, alert, oriented, sitting up in bed, offers no complaints, able to discuss diabetes care plan
States he was diagnosed with diabetes last year after having recurrent episodes of pancreatitis for about one year.
States he was Rx Lantus by his PCP in [place] and was instructed to only take it if his PM sugar is > 200, he has not gone to see his PCP in over 6 months.
He admits that he has not been checking his sugars at all and has not been taking his insulin for at least the past 2 weeks.
Glucose on admission was 880, he was initiated on insulin gtt briefly in the ED, then was started on basal bolus regimen. A1C is 12.9% consistent with severe Uncontrolled Diabetes, Cr 0.6, eGFR >60.
02/11 Patient received 10 units novolog AC, required 3 to 7 additional corrective insulin. HS glucose 388. Received 20 units lantus.
02/12 Fasting glucose 420. Will increase hs lantus to 25 units and increase AC novolog to 14 units with moderate corrective insulin. Patient states he does have a [employer] Verio glucose monitor and needs test strips and lancets. Discussed with
patient he does need to test glucose ACHS when discharged and report to his doctor and follow up with his doctor to better manage his diabetes.
02/11 Suspect that weight loss, fatigue, lack of energy are sequelae of long-standing poor DM control. Had a lengthy d/w pt regarding his current A1C and lack of interest in diabetes self care management. Discussed implications of poorly
controlled diabetes as it relates to acute and terminal operations manager diabetes related complications, to which he responded stating that he forgets most of the time to check his blood sugar.
Will consult diabetes nurse educator and Dietitian
Diabetes History
- -
Type of Diabetes: 2 requiring insulin
Pre-Admission Diabetes Regimen
02/11/25 02/12/25
07:35 05:56
Creatinine 0.6 L 0.6 L
Lab Results
Hemoglobin A1c 12.9 % (4.0-5.6) H 02/10/25 07:24
Insulin Pump Settings
IP Diabetes Regimen
02/11/25 02/11/25 02/11/25
07:35 11:08 16:17
Glucose 313 H
POC Glucose 317 H 213 H
02/11/25 02/12/25 02/12/25
21:14 05:56 07:59
Glucose 420 H
POC Glucose 388 H 406 H
Patient Education
[2025-02-12 08:42] LABS: Glucose 351 mg/dl (70-99)
--- NOTE | 2025-02-12 08:44 | CM ---
business services manager reached out to [facility], and patient had [employer] before however [facility] he did not renew his insurance. Per [facility] they will send all paperwork today, they were unable to send yesterday due to system being down. Patient will need to go to
[facility] to purchase his diabetic medications at discharge.
Plan; Home with family support, patient will need to pay for prescriptions, plan is to reinstate patient's MA.
[2025-02-12] MEDS: NOVOLOG FLEXPEN-MODERATE RESISTANCE 9 UNITS SC (08:50)
[2025-02-12] MEDS: NOVOLOG FLEXPEN 14 UNITS SC ×3 (08:54→16:30)
[2025-02-12] MEDS: MAGNESIUM SULFATE 50 IV (10:13)
[2025-02-12] MEDS: NOVOLOG FLEXPEN SC (10:47)
[2025-02-12 11:02] VITALS: BP 117/82
[2025-02-12 12:08] LABS: Glucose - Point of Care 186 mg/dl (70-99)
[2025-02-12] MEDS: NOVOLOG FLEXPEN-MODERATE RESISTANCE 1 UNITS SC ×2 (12:37→16:31)
[2025-02-12] MEDS: TYLENOL 1000 MG PO ×2 (13:48→20:21)
[2025-02-12 15:08] VITALS: BP 118/82
[2025-02-12 16:16] LABS: Glucose - Point of Care 175 mg/dl (70-99)
[2025-02-12 19:00] VITALS: BP 117/82
[2025-02-12 21:06] LABS: Glucose - Point of Care 384 mg/dl (70-99)
[2025-02-12] MEDS: LANTUS 0.25 UNITS SC (21:50)
[2025-02-12 22:58] VITALS: BP 131/93
--- NOTE | 2025-02-13 02:29 | DOWNTIME ---
There was a [employer] Client [employer] Downtime on 02/13/2025 from 0100 to 02/13/2025 at 0215. Downtime documentation of patient's care, including medication administrations, has been reconciled in the electronic record per guidelines. Refer to the
patient's paper chart under the miscellaneous tab to see printed paper medication records and downtime forms.
[2025-02-13 03:00] VITALS: BP 127/90
[2025-02-13 03:16] VITALS: BMI 21.1
[2025-02-13 07:48] LABS: Glucose - Point of Care 278 mg/dl (70-99)
[2025-02-13 08:00] VITALS: BP 127/93
[2025-02-13] MEDS: NOVOLOG FLEXPEN 14 UNITS SC ×3 (08:08→16:14)
[2025-02-13] MEDS: NOVOLOG FLEXPEN-MODERATE RESISTANCE 5 UNITS SC ×2 (08:09→13:11)
[2025-02-13 08:15] LABS: ALT (SGPT) 118 U/L (0-50); AST (SGOT) 76 U/L (17-59); Albumin 3.8 g/dl (3.5-5.0); Alkaline Phosphatase 90 U/L (38-126); Blood Urea Nitrogen 10 mg/dl (9-20); Calcium 8.8 mg/dl (8.4-10.2); Carbon Dioxide 28 mmol/L (22-30); Chloride 99 mmol/L (98-107); Estimated Creatinine Clearance > 125 ml/min; Glucose 280 mg/dl (70-99); Magnesium 1.6 mg/dl (1.6-2.3); Potassium 4.2 mmol/L (3.5-5.1); Sodium 134 mmol/L (135-145); Total Protein 6.5 g/dl (6.3-8.2); eGFR > 60.00
[2025-02-13] MEDS: TYLENOL 1000 MG PO (09:06)
--- NOTE | 2025-02-13 09:28 | W.PN.HOSP.TC ---
Today's Communication/Plan
-
Discharge today
Assessment / Plan
Assessment / Plan
29y M with PMH significant for alcoholic pancreatitis/chronic pancreatitis and DM who presents to ED complaining of chest pain, cough, hemoptysis, weight loss.
CT A/P: No evidence of central pulmonary embolism. Scattered small pancreatic calcifications compatible with chronic pancreatitis. Moderate to large volume colonic stool, especially proximally. Findings could represent constipation.
Severe Uncontrolled DM1, hemoglobin A1c 12.9
-Weight Loss secondary to the above
-was on insulin gtt briefly in the ED
-no elevation in anion gap, no acidemia on blood gas
-continue with insulin adjustments as per diabetes CHIEF MEDIA OFFICER
-medically stable for discharge on glargine 30 units at bedtime, NovoLog 14 units AC 3 times daily
-patient has an contact lens assistant in quite the time, he has been recommended to follow-up with his contact lens assistant
Chronic Pancreatitis:
-acute component of pancreatitis has been ruled out
-chronic pancreatitis due to alcohol abuse disorder
-patient admits to continued alcohol use although less than prior
-lipase normal, tolerating solids, IV fluids and IV Dilaudid discontinued
Constipation
- 02/10 CT abdomen and pelvis shows moderate to large volume colonic stool, especially proximally
- Patient declining laxatives, stopped IV Dilaudid
Pseudohyponatremia
-from hyperglycemia
Cough/Bronchitis:
-COVID NEG
-likely viral bronchitis
-supportive care
Hypomagnesemia:
-2g IV Mg, f/u am Mg
DVT prophylaxis�SCDs
Full code
Called patient's mom twice to give her an update, she did not pecan picker 02/13
Physical exam
Gen: NAD, AAOx3.
Eyes: EOMI, PERRLA, no scleral icterus.
Neck: supple.
CV: RRR, +S1/S2, no m/r/g.
Resp: CTAB, no rales, wheezes, or rhonchi.
Abd: +BS, mildly distended, tender at the suprapubic region
Skin: No rashes.
Neuro: CN 2-12 intact, non-focal.
Psych: Normal mood and affect.
Anticipated Discharge: Today
Subjective/Interval History
-
Date of Service: February 13, 2025
Patient has intermittent abdominal pain. Denies nausea and vomiting. He is having bowel movements. No fever.
Objective Data
-
Labs:
Laboratory Results
02/13/25
06:52
Sodium 134 L
Potassium 4.2
Chloride 99
Carbon Dioxide 28
BUN 10
Creatinine 0.5 L
Glucose 280 H
Calcium 8.8
Total Bilirubin 0.3
AST 76 H
ALT 118 H
Alkaline Phosphatase 90
Vital Signs:
Vital Signs
Temp Pulse Resp BP Pulse Ox
98.7 F 93 16 127/93 97
02/13/25 08:00 02/13/25 08:00 02/13/25 08:00 02/13/25 08:00 02/13/25 08:00
I&O
02/12/25 02/13/25 02/14/25
06:59 06:59 06:59
Intake Total 1750 / 1750
Balance 1750 / 1750
--- NOTE | 2025-02-13 09:35 | PN.DE.MGMTRT ---
Insulin Management
- -
02/13/2025: Diabetes Management Consult Follow up
29 year old male c/o cough, chest pain, abdominal pain, difficulty breathing, hemoptysis, weight loss. PMH: Alcohol abuse, current smoker, Alcoholic Pancreatitis/Chronic pancreatitis and diabetes. States he has had similar pain / dyspnea in the
past with flares of his pancreatitis. Patient also notes marked weight loss over the past 1 year. He previously weighed 200 lbs and currently weighs about 153 per our weight check. Patient states that he is constantly eating and drinking, but
cannot gain any weight. He feels fatigued / tired all of the time with increased SOB on exertion and with minor activity.
Pt awake, alert, oriented, sitting up in bed, offers no complaints, able to discuss diabetes care plan
States he was diagnosed with diabetes last year after having recurrent episodes of pancreatitis for about one year.
States he was Rx Lantus by his PCP in [place] and was instructed to only take it if his PM sugar is > 200, he has not gone to see his PCP in over 6 months.
He admits that he has not been checking his sugars at all and has not been taking his insulin for at least the past 2 weeks.
Glucose on admission was 880, he was initiated on insulin gtt briefly in the ED, then was started on basal bolus regimen. A1C is 12.9% consistent with severe Uncontrolled Diabetes, Cr 0.6, eGFR >60.
02/12 Fasting glucose 420. HS lantus increased from 20 units to 25 units and AC novolog increased from 10 units to 14 units with moderate corrective insulin.
02/13 Fasting glucose 278, will again increase HS lantus from 25 units to 30 units. Pre meal glucose range 175 to 186. Will continue Novolog 14 units AC with moderate corrective AC.
Patient states he does have a OneTouch Verio glucose monitor and needs test strips and lancets. Discussed with patient he does need to test glucose ACHS when discharged and report to his doctor and follow up with his doctor to better manage his
diabetes. Again stressed the importance of taking insulin both rapid acting with each meal and HS lantus.
02/11 Suspect that weight loss, fatigue, lack of energy are sequelae of long-standing poor DM control. Had a lengthy d/w pt regarding his current A1C and lack of interest in diabetes self care management. Discussed implications of poorly
controlled diabetes as it relates to acute and emt intermediate diabetes related complications, to which he responded stating that he forgets most of the time to check his blood sugar.
Will consult diabetes nurse educator and Dietitian
Diabetes History
- -
Type of Diabetes: 2 requiring insulin
Pre-Admission Diabetes Regimen
02/13/25
06:52
Creatinine 0.5 L
Lab Results
Hemoglobin A1c 12.9 % (4.0-5.6) H 02/10/25 07:24
Insulin Pump Settings
IP Diabetes Regimen
02/12/25 02/12/25 02/12/25
12:07 16:15 21:05
Glucose
POC Glucose 186 H 175 H 384 H
02/13/25 02/13/25
06:52 07:46
Glucose 280 H
POC Glucose 278 H
Patient Education
[2025-02-13 12:25] LABS: Glucose - Point of Care 259 mg/dl (70-99)
--- NOTE | 2025-02-13 14:09 | W.DCSUMMARY ---
Discharge Summary
Discharge Data
Date of Admission: 02/10/25
Date of Discharge: 02/13/25
-
Pending Results: No
Hospital Course
Discharge diagnosis:
Severe uncontrolled type 1 diabetes, hemoglobin A1c 12.9
Chronic pancreatitis due to alcohol use
Hyperkalemia
Constipation
Pseudohyponatremia
Hypomagnesemia
Chronic alcohol use
Cough/chest pain secondary to acute bronchitis
Consults: Diabetes nurse practitioner
CTA Chest: Central pulmonary arteries are well-opacified and demonstrate no filling defects to suggest pulmonary embolism. Evaluation of some the more peripheral pulmonary arterial branches somewhat limited. The thoracic aorta is normal in caliber
and homogeneous in appearance. There is some dependent subsegmental atelectasis. The trachea and central airways are patent. There is no focal parenchymal consolidation, pneumothorax, pleural effusion or pericardial effusion. There is no significant
hilar, mediastinal or axillary lymphadenopathy. There is no focal suspicious osseous lesion.
CT Abdomen and pelvis: Numerous scattered small pancreatic calcifications are seen compatible with chronic pancreatitis. There are no discrete focal pancreatic/peripancreatic inflammatory changes. Oral contrast only opacifies central small bowel.
Moderate to large volume proximal to mid large bowel stool is seen. There is no intestinal obstruction or free air. There is no focal intrinsic abnormality of the liver, spleen, pancreas or adrenal glands. The abdominal aorta is normal in caliber
and homogeneous in appearance. There is no retroperitoneal lymphadenopathy. The urinary bladder is unopacified without gross focal intrinsic abnormality. There is no true pelvis free fluid or significant lymphadenopathy. There is no focal suspicious
osseous lesion.
Echocardiogram:
1. Normal LV size and function without regional wall motion abnormalities.
2. LVEF is 55-60% by volumetric assessment. GLS is -16%. Mild concentric LVH.
3. No significant valvular disease. Insufficient TR for estimation of PASP.
4. No prior study available for comparison.
Hospital course:
29-year-old male with a past medical history of type 1 diabetes, chronic pancreatitis, and chronic alcohol use who presented with chest pain/shortness of breath/hemoptysis, and found to have a blood sugar of 880. Patient had a chest CT which was
negative for PE, negative for pneumonia. Echocardiogram was also negative, EKG showed sinus tachycardia with possible left atrial enlargement. He was COVID negative. Suspect that he had acute bronchitis. He received supportive treatment.
For his hyperglycemia, he was not in DKA. He was temporarily on an insulin drip in the ER, and converted to subcu insulin. His hemoglobin A1c is 12.9. His insulin was uptitrated. He is medically stable for discharge on Lantus 30 units at
bedtime, NovoLog 14 units AC 3 times daily. Extensive diabetes education was provided.
For his chronic pancreatitis, he was treated with IV fluids and IV pain medication. His epigastric abdominal pain resolved. He did intermittently have lower abdominal pain, which could be from constipation. His CT of the abdomen and pelvis does
reveal constipation. He declined laxatives, and states that he is having bowel movements. He has been counseled to permanently abstain from drinking alcohol. He reports understanding. 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
Patient is medically stable for discharge. He needs to follow-up with his manager communication as soon as possible.
Disposition: Home self-care
Discharge planning: Required 41 minutes
Discharge Plan
-
Patient Disposition: Home (Routine Discharge)
Discharge Diagnosis/Procedures: Chronic pancreatitis, uncontrolled diabetes, constipation
Condition: Good
Diet: Diabetic, Carb Controlled
Activity: As tolerated
Driving Restrictions: As prior to admission
Activity Restrictions/Additional Instructions:
Recommend you permanently abstain from drinking alcohol.
Please follow-up with your PCP in 1 week, and your usual manager communication in 2-3 weeks.
Instructions: Diabetes and diet
Referrals:
UNKNOWN - PT DOES,NOT KNOW [Family Provider]
Prescriptions:
New
(DME) OneTouch Verio test strips Strip
Qty: 200 1RF
Rx Instructions:
Test glucose before each meal and bedtime As Directed E11.65
insulin aspart U-100 [Novolog FlexPen U-100 Insulin] 100 unit/mL (3 mL) Insulin Pen
14 unit SC AC Qty: 5 1RF
insulin glargine [Lantus Solostar U-100 Insulin] 100 unit/mL (3 mL) Insulin Pen
30 unit SC HS Qty: 5 1RF
(DME) pen needle, diabetic [Treva Pen Needle] 32 gauge x 5/32' Needle
Qty: 200 1RF
Rx Instructions:
1 box of 200 needles use one needle 4 times per day
refer to insulin instructions
(DME) lancets [OneTouch Delica Plus Lancet] 33 gauge Misc
Qty: 200 1RF
Rx Instructions:
Test glucose before each meal and bedtime As Directed E11.65
Discontinued
insulin glargine [Lantus Solostar U-100 Insulin] 100 unit/mL (3 mL) Insulin Pen
17 unit SC QPM PRN (Reason: Glucose > 180)
Discharge Orders:
Discharge Patient (As Directed); Ordered 02/13/25
Ordered By: Ty Huang
Discharge Date and Time
Discharge Date/Time: 02/13/25 17:56
Print Language: PUERTO RICAN
--- NOTE | 2025-02-13 14:29 | CM ---
Addendum entered by Farnaz Hunt 02/13/25 14:58:
material control manager reached out to [facility] in [place] and cost of medications are $219.13 patient is aware and agreeable to cost of medications, patient reports that he has submitted all of the paperwork to reinstate his insurance.
Addendum entered by Farnaz Hunt 02/13/25 14:44:
Medications per [facility] pharmacy are approx $470, patient made aware and plan is to use [facility] [facility] as recommending by telehealth nurse educator. Call placed to [place] [facility].
Original Note:
Home no needs.
Plan; Home
[2025-02-13 16:00] VITALS: BP 111/78
[2025-02-13 16:14] LABS: Glucose - Point of Care 184 mg/dl (70-99)
[2025-02-13] MEDS: NOVOLOG FLEXPEN-MODERATE RESISTANCE 1 UNITS SC (16:14)
--- NOTE | 2025-02-13 17:30 | PTCARENOTE ---
Reviewed instructions
--- NOTE | 2025-02-13 17:30 | PTCARENOTE ---
Patient verbalized understanding of all d/c instructions, spoke with patient and mother via phone. Picked up by sister .
== END 2025-02-13 17:56 | disposition home or self-care (01) | DRG 638 ==
LOC: 4 WEST ACU 03:42
PROVIDERS: Emergency Medicine; Internal Medicine; ADMITTING PHYSICIAN Hospitalist; ATTENDING PHYSICIAN Family Medicine; EMERGENCY PHYSICIAN Emergency Medicine
DX: E10.65 Type 1 diabetes mellitus with hyperglycemia (principal); J98.11 Atelectasis; K86.0 Alcohol-induced chronic pancreatitis; E87.5 Hyperkalemia; K59.00 Constipation, unspecified; E83.42 Hypomagnesemia; J20.8 Acute bronchitis due to other specified organisms; F10.10 Alcohol abuse, uncomplicated; F17.200 Nicotine dependence, unspecified, uncomplicated; Z79.4 Long term (current) use of insulin; Z11.52 Encounter for screening for COVID-19
CPT/HCPCS: 71275; 74177; 80048; 80053; 80076; 82010; 82248; 82805; 82947; 82962; 83036; 83690; 83735; 84100; 84443; 85025; 85027; 85379; 87811; 93005; 93306; 96361; 96365; 96366; 96375; 96376; 99285; 99406; Q9967